=== PATIENT | female | born 1950 | race Caucasian/White ===

== ENCOUNTER → 2017-01-25 | Outpatient (CLI) | payer MEDICARE, OTHER | LOC: KOH-I 14:01 | DX: R10.9 Unspecified abdominal pain (principal) | CPT/HCPCS: 71100 ==

== ENCOUNTER → 2017-03-03 | Outpatient (CLI) | payer MEDICARE, OTHER | LOC: KOH-I 10:00 | DX: R31.0 Gross hematuria (principal); N28.89 Other specified disorders of kidney and ureter; R35.0 Frequency of micturition | CPT/HCPCS: 74178; Q9963 ==

== ENCOUNTER → 2017-04-02 | Outpatient (CLI) | payer MEDICARE, OTHER | LOC: KOH-I 10:28 | DX: M48.00 Spinal stenosis, site unspecified (principal); M54.16 Radiculopathy, lumbar region; M51.36 Other intervertebral disc degeneration, lumbar region; M51.16 Intervertebral disc disorders with radiculopathy, lumbar region; M99.73 Connective tissue and disc stenosis of intervertebral foramina of lumbar region; M99.74 Connective tissue and disc stenosis of intervertebral foramina of sacral region; M47.896 Other spondylosis, lumbar region | CPT/HCPCS: 72148 ==

== ENCOUNTER → 2020-10-25 | Outpatient (CLI) | payer MEDICARE, OTHER ==
[~2020-10-25] VITALS: Ht 152.4 cm; Wt 57.2 kg
[~2020-10-25] MED LIST: ALPRAZOLAM0.5 MG PO; BISOPROLOL-HCT1 EAC1 PO; CLARITIN10 M2 PO; CYMBALTA 30 MG30 MG PO; ELAVIL 25 MG TA25 MG PO; ELIQUIS5 MG PO; EXTRA STRENGTH500 MG PO; FOLIC ACID 1 MG1 MG PO; FOLIC ACID PO; FORTEO 250250 MCG/ML SC; LEVAQUIN500 MG PO; LEXAPRO10 MG PO; METHOTREXATE2.5 MG PO; MULTI VIT PO; MULTIPLE VITAM1 EACH PO; NEURONTIN 300300 MG PO; NITROFURANTOIN100 M1 PO; NORCO 7.5-3251 EACH PO; PLAQUENIL200 MG PO; POTASSIUM CHLO20 ME2 PO; SOMA350 MG PO; SYNTHROID100 MCG PO; TOPAMAX 25 MG T25 MG PO; TRAZODONE HCL100 MG PO; TRIMETHOPRIM PO; TRIMETHOPRIM100 MG PO; VANCOMYCIN HCL250 MG PO; VIT D3 PO; ZIAC 2.5-6.251 EACH PO
== END ==
LOC: OPSV 10-16 13:00
DX: M81.0 Age-related osteoporosis without current pathological fracture (principal)
CPT/HCPCS: 96365; J3489

== ENCOUNTER → 2021-01-13 | Outpatient (CLI) | payer MEDICARE, OTHER | LOC: EXRD 15:05 | DX: M19.042 Primary osteoarthritis, left hand (principal); M19.041 Primary osteoarthritis, right hand; G89.18 Other acute postprocedural pain; M54.5 Low back pain | CPT/HCPCS: 73130 ==

== ENCOUNTER → 2021-09-23 | Outpatient (CLI) | payer MEDICARE, OTHER | LOC: KOH-I 09:07 | DX: M51.36 Other intervertebral disc degeneration, lumbar region (principal); S22.089D Unspecified fracture of T11-T12 vertebra, subsequent encounter for fracture with routine healing | CPT/HCPCS: 72148 ==

== ENCOUNTER → 2021-12-18 | Outpatient (CLI) | payer MEDICARE, OTHER ==
[2021-12-18 10:31] LABS: BUN/CREATININE RATIO 19 (0-10)
== END ==
LOC: CT 09:50
PROVIDERS: Nurse Practitioner Family
DX: R10.2 Pelvic and perineal pain (principal); R19.8 Other specified symptoms and signs involving the digestive system and abdomen
CPT/HCPCS: 36415; 80048; Q9967

== ENCOUNTER → 2022-02-23 | Outpatient (CLI) | payer MEDICARE, OTHER ==
[~2022-02-23] VITALS: Ht 154.9 cm; Wt 63.5 kg
== END ==
LOC: OPSV 14:00
DX: M81.0 Age-related osteoporosis without current pathological fracture (principal)
CPT/HCPCS: 96372

== ENCOUNTER → 2022-06-19 | Day surgery (SDC) | payer MEDICARE, OTHER ==
[~2022-06-19] MED LIST changes: +CELEBREX 200MG200 MG PO; +CLARITIN10 MG PO; +LEVOXYL88 MCG PO; +LYRICA100 MG PO; +METHOTREXATE T2.5 MG PO; +PROLIA INJ60 MG/1 ML SC; +RIZATRIPTAN10 MG PO; +VITAMIN D31250 MCG PO
== END | disposition home or self-care (01) ==
LOC: OR 07:05
DX: D50.0 Iron deficiency anemia secondary to blood loss (chronic) (principal); K31.7 Polyp of stomach and duodenum; K29.70 Gastritis, unspecified, without bleeding; K57.30 Diverticulosis of large intestine without perforation or abscess without bleeding; I10 Essential (primary) hypertension; E03.9 Hypothyroidism, unspecified; M06.9 Rheumatoid arthritis, unspecified; Z93.4 Other artificial openings of gastrointestinal tract status; Z98.0 Intestinal bypass and anastomosis status; Z88.5 Allergy status to narcotic agent; Z88.2 Allergy status to sulfonamides; Z91.040 Latex allergy status